=== PATIENT | male | born 1965 | race Caucasian/White ===

== ENCOUNTER 2017-11-10 06:45 | Day surgery (SDC) | payer OTHER ==
[2017-11-08 09:17] VITALS: BMI 36.7
[~2017-11-10 06:45] MED LIST: LACTATED RINGERS 1,000 ML IV SCH
[2017-11-10 07:04] VITALS: TEMP 97.8
[2017-11-10] MEDS ORDERED: LACTATED RINGERS 1,000 ML IV ONE (07:08)
[2017-11-10 07:15] LABS: Glucose,Whole Blood 115 mg/dL (75-99)
[2017-11-10] MEDS ORDERED: GLUCAGON 1 MG/ML VIAL ONE (07:52)
[2017-11-10] MEDS ORDERED: PROPOFOL 10 MG/ML 20 ML VIAL IV ONE (07:52)
--- NOTE | 2017-11-10 08:02 | P.GSHP ---
History of Present Illness H&P Date: 11/10/17 Chief Complaint: GERD, screening colonoscopy This is a 52-year-old male who presents today for EGD and colonoscopy. He has a history of Joseph's esophagus. He is last colonoscopy was 2 years ago. He was found have colon polyps. 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 Last Myocardial Infarction Date:: 2009 History of Any Multi-Drug Resistant Organisms: None Reported Past Surgical History: Orthopedic Surgery Additional Past Surgical History / Comment(s): numerous ortho. surg.; colonoscopy, EGD Past Anesthesia/Blood Transfusion Reactions: No Reported Reaction Smoking Status: Current some day smoker - Past Family History Father Family Medical History: Cancer Additional Family Medical History / Comment(s): colon Medications and Allergies Home Medications Medication Instructions Recorded Confirmed Type HYDROcodone/APAP 10-325MG [[place] 1 tab PO Q6H PRN 10/20/15 11/08/17 History 10-325] Calcium Polycarbophil [Fibercon] 625 mg PO BID 11/08/17 11/08/17 History Hydrochlorothiazide [Hydrodiuril] 50 mg PO DAILY 11/08/17 11/08/17 History Metoprolol Tartrate 25 mg PO BID 11/08/17 11/08/17 History Omeprazole 40 mg PO BID 11/08/17 11/08/17 History Ranitidine HCl [Zantac] 150 mg PO BID 11/08/17 11/08/17 History metFORMIN HCL [Glucophage] 500 mg PO BID 11/08/17 11/08/17 History Allergies Allergy/AdvReac Type Severity Reaction Status Date / Time buspirone AdvReac upset Verified 11/08/17 09:01 stomach citalopram AdvReac upset Verified 11/08/17 09:01 stomach clonazepam [From Klonopin] AdvReac upset Verified 11/08/17 09:01 stomach cyclobenzaprine AdvReac upset Verified 11/08/17 09:01 [From Flexeril] stomach ibuprofen [From Motrin] AdvReac upset Verified 11/08/17 09:01 stomach Surgical - Exam Vital Signs Temp Pulse Resp BP Pulse Ox 97.8 F 62 18 157/87 95 11/10/17 07:02 11/10/17 07:02 11/10/17 07:02 11/10/17 07:02 11/10/17 07:02 - General well developed, well nourished, no distress - Eyes PERRL - ENT normal pinna - Neck no masses - Respiratory normal expansion - Cardiovascular Rhythm: regular - Abdomen Abdomen: soft, non tender Results - Labs Abnormal Lab Results - Last 24 Hours (Table) 11/10/17 Range/Units 07:06 POC Glucose (mg/dL) 115 H (75-99) mg/dL Assessment and Plan Assessment: History of GERD and Joseph's esophagus. History of colon polyps. We'll perform EGD and colonoscopy.
[2017-11-10 08:30] VITALS: RESP 16
[2017-11-10 08:49] VITALS: BP 128/77; PULSE 50
--- NOTE | 2017-12-04 16:14 | P.OP ---
Date of Procedure: 11/10/17 Preoperative Diagnosis: Joseph's esophagus Screening colonoscopy Postoperative Diagnosis: Antral gastritis Mild esophagitis Rectal polyp Procedure(s) Performed: EGD Colonoscopy Anesthesia: MAC Surgeon: Dedrick De La Cruz Pathology: other (Polyp, antrum, esophagus) Condition: stable Disposition: PACU Description of Procedure: The patient's placed on the endoscopy table in the lateral position. He received IV sedation. The gastroscope placed oropharynx and passed in the esophagus and stomach. Scope was then placed through the pylorus. The first and second portion of the duodenum appeared normal. Scope was then brought back the antrum and this appeared mildly inflamed. A biopsies was performed. Scope was then retroflexed and the remainder stomach appeared normal. There was no significant hiatal hernia. The GE junction was at 40 cm. The distal esophagus appeared minimally inflamed a biopsies performed. The proximal esophagus appeared normal. Scope was withdrawn for patient. Next digital rectal exam was performed which revealed no ebonized. The colonoscope was then placed patient anus passed throughout the entire colon. The ileocecal valve was visually is. The cecum, ascending and transverse colon appeared normal. The descending and; appeared normal. The scope was then brought back the rectum and there was a small polyp seen this removed with the snare. The scope was withdrawn from the rectum. Patient tolerated the well and was sent to recovery in stable condition.
== END 2017-11-10 09:21 | disposition home or self-care (01) ==
LOC: ORWHC2ENDO 06:45
PROVIDERS: ATTEND Surgery
DX: Z12.11 Encounter for screening for malignant neoplasm of colon (principal); K29.50 Unspecified chronic gastritis without bleeding; K20.0 Eosinophilic esophagitis; K22.70 Barrett's esophagus without dysplasia; K62.1 Rectal polyp; Z86.010 Personal history of colon polyps; E11.9 Type 2 diabetes mellitus without complications; I10 Essential (primary) hypertension; K76.0 Fatty (change of) liver, not elsewhere classified; Z88.8 Allergy status to other drugs, medicaments and biological substances; M19.90 Unspecified osteoarthritis, unspecified site; Z79.84 Long term (current) use of oral hypoglycemic drugs; Z79.899 Other long term (current) drug therapy; Z88.6 Allergy status to analgesic agent; I25.2 Old myocardial infarction
CPT/HCPCS: 88305; 45385; 43239; J1610; J2704; 45380

== ENCOUNTER → 2019-11-15 | Outpatient (CLI) | payer OTHER ==
--- NOTE | 2019-11-15 13:19 | US ---
EXAMINATION TYPE: US carotid duplex BILAT DATE OF EXAM: 11/15/2019 COMPARISON: NONE CLINICAL HISTORY: dizziness R42. EXAM MEASUREMENTS: RIGHT: Peak Systolic Velocity (PSV) cm/sec ----- Right CCA: 101 ----- Right ICA: 89.7 ----- Right ECA: 91.9 ICA/CCA ratio: 0.89 RIGHT: End Diastole cm/sec ----- Right CCA: 26.5 ----- Right ICA: 21.7 ----- Right ECA: 15.6 LEFT: Peak Systolic Velocity (PSV) cm/sec ----- Left CCA: 103 ----- Left ICA: 95.1 ----- Left ECA: 115 ICA/CCA ratio: 0.92 LEFT: End Diastole cm/sec ----- Left CCA: 23.7 ----- Left ICA: 18.8 ----- Left ECA: 23.4 VERTEBRALS (direction of flow): Right Vertebral: Antegrade Left Vertebral: Antegrade Rhythm: Normal Grayscale, color Doppler, spectral Doppler imaging performed of the carotid arteries. Waveform analys is does not show significant stenosis of the internal carotid arteries. No significant stenosis seen. No elevated velocities. No plaque appreciated. IMPRESSION: No hemodynamic significant stenosis of the proximal internal carotid arteries by Doppler criteria, an indirect measurement of carotid stenosis Criteria for Assigning % of Stenosis / Diameter reduction (Estimation based on the indirect measurements of the internal carotid artery velocities (ICA PSV). 1. Normal (no stenosis)=ICA PSV < 125 cm/s: ratio < 2.0: ICA EDV<40 cm/s. 2. Less than 50% stenosis=ICA PSV < 125 cm/s: ratio < 2.0: ICA EDV<40 cm/s. 3. 50 to 69% stenosis=ICA PSV of 125 to 230 cm/s: ration 2.0 ? 4.0: ICA EDV 40-100 cm/s. 4. Greater than 70% stenosis to near occlusion= ICA PSV > 230 cm/s: ratio > 4.0: ICA EDV > 100 cm/s. 5. Near occlusion= ICA PSV velocities may be low or undetectable: variable ratio and ICA EDV. 6. Total occlusion=unable to detect flow.
--- NOTE | 2019-11-15 13:22 | US ---
EXAMINATION TYPE: US liver DATE OF EXAM: 11/15/2019 COMPARISON: NONE CLINICAL HISTORY: K76.0. Fatty liver. EXAM MEASUREMENTS: Liver Length: 17.8 cm as measured Gallbladder Wall: 0.3 cm CBD: 0.4 cm Right Kidney: 21.4 x 4.3 x 5.1 cm Pancreas: not visualized due to midline bowel gas. Liver: measures 17.8 cm may under represent true size, there is a coarse echotexture. Gallbladder: No stones seen Evidence for sonographic Bowers's sign: No CBD: wnl Right Kidney: cystic area measures 3.4 x 1.9 x 2.6 cm shows imperceptible wall and anechoic appearan ce, increased through transmission consistent with simple cyst IMPRESSION: Exam is somewhat limited. Coarse echotexture within the liver may represent hepatic steat osis, hepatocellular disease, liver may be enlarged
== END | disposition home or self-care (01) ==
LOC: RADUSWWP 12:09
DX: K76.0 Fatty (change of) liver, not elsewhere classified (principal); R42 Dizziness and giddiness
CPT/HCPCS: 76705; 93880

== ENCOUNTER 2020-03-27 18:42 | Emergency (ER) | payer OTHER ==
[2020-03-27 18:53] VITALS: RESP 18; TEMP 99.6
[2020-03-27] MEDS ORDERED: IPRATROPIUM-ALBUTEROL 3 ML NEB INHALATION STA (19:22)
--- NOTE | 2020-03-27 19:25 | ED ---
General Adult HPI - General Chief complaint: Shortness of Breath Stated complaint: JERILYN Time Seen by Provider: 03/27/20 19:00 Source: patient, RN notes reviewed, old records reviewed Mode of arrival: ambulatory Limitations: no limitations - History of Present Illness Initial comments: This a 54-year-old male who presents emergency department stating that he has had about 3 weeks of shortness of breath per patient states it started after he exposed himself to quite a bit of dust in his furnace when he was working on it. Patient states he was treated after that with an inhaler and steroids and it seemed to go away. Patient states about 2 days ago it reoccur a very difficult time breathing he is not coughing he denies any fever denies any cold exposure. Patient denies any chest pain or palpitations. Patient states he feels as if he has to cough something up but he has been unable to get any sputum up. Patient denies any abdominal pain patient denies nausea vomiting diarrhea. Patient denies lightheadedness or dizziness. Patient states exertion does not appear to make it worse in fact walking seems to sometimes make it a little better. Patient denies any swelling to the legs or calf tenderness. - Related Data Home Medications Medication Instructions Recorded Confirmed HYDROcodone/APAP 10-325MG [[place] 1 tab PO Q6H PRN 10/20/15 03/27/20 10-325] hydroCHLOROthiazide [Hydrodiuril] 50 mg PO DAILY 11/08/17 03/27/20 Albuterol Sulfate [Albuterol 1 puff PO RT-TID PRN 03/27/20 03/27/20 Sulfate Hfa] Alogliptin Benzoate [Alogliptin] 25 mg PO DAILY 03/27/20 03/27/20 Cholecalciferol [Vitamin D3 (25 25 mcg PO DAILY 03/27/20 03/27/20 Mcg = 1000 Iu)] Famotidine 20 mg PO DAILY 03/27/20 03/27/20 Loratadine 10 mg PO DAILY PRN 03/27/20 03/27/20 Metoprolol Tartrate [Lopressor] 50 mg PO BID 03/27/20 03/27/20 Naproxen 500 mg PO BID PRN 03/27/20 03/27/20 Pantoprazole Sodium [Protonix] 20 mg PO BID 03/27/20 03/27/20 glipiZIDE [Glucotrol] 5 mg PO BID 03/27/20 03/27/20 metFORMIN HCL 1,000 mg PO BID 03/27/20 03/27/20 Previous Rx's Medication Instructions Recorded Benzonatate [Tessalon Perles] 200 mg PO Q8H #15 capsule 03/27/20 predniSONE [Deltasone] 40 mg PO DAILY #8 tab 03/27/20 Allergies Allergy/AdvReac Type Severity Reaction Status Date / Time buspirone AdvReac upset Verified 03/27/20 20:10 stomach citalopram AdvReac upset Verified 03/27/20 20:10 stomach clonazepam [From Klonopin] AdvReac upset Verified 03/27/20 20:10 stomach cyclobenzaprine AdvReac upset Verified 03/27/20 20:10 [From Flexeril] stomach ibuprofen [From Motrin] AdvReac upset Verified 03/27/20 20:10 stomach quetiapine AdvReac Unknown Verified 03/27/20 20:10 Review of Systems ROS Statement: Those systems with pertinent positive or pertinent negative responses have been documented in the HPI. ROS Other: All systems not noted in ROS Statement are negative. 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 Last Myocardial Infarction Date:: 2009 History of Any Multi-Drug Resistant Organisms: None Reported Past Surgical History: Orthopedic Surgery Additional Past Surgical History / Comment(s): numerous ortho. surg.; colonoscopy, EGD Past Anesthesia/Blood Transfusion Reactions: No Reported Reaction Past Psychological History: No Psychological Hx Reported Smoking Status: Never smoker Past Alcohol Use History: Occasional Past Drug Use History: None Reported - Past Family History Father Family Medical History: Cancer Additional Family Medical History / Comment(s): colon General Exam - General Exam Comments Initial Comments: GENERAL: Patient is well-developed and well-nourished. Patient is nontoxic and well- hydrated and is in mild distress. ENT: Neck is soft and supple. No significant lymphadenopathy is noted. Oropharynx is clear. Moist mucous membranes. Neck has full range of motion without eliciting any pain. EYES: The sclera were anicteric and conjunctiva were pink and moist. Extraocular movements were intact and pupils were equal round and reactive to light. Eyelids were unremarkable. PULMONARY: Unlabored respirations. Good breath sounds bilaterally. Occasional scattered wheeze CARDIOVASCULAR: There is a regular rate and rhythm without any murmurs gallops or rubs. ABDOMEN: Soft and nontender with normal bowel sounds. SKIN: Skin is clear with no lesions or rashes and otherwise unremarkable. NEUROLOGIC: Patient is alert and oriented x3. Cranial nerves II through XII are grossly intact. Motor and sensory are also intact. Normal speech, volume and content. Symmetrical smile. MUSCULOSKELETAL: Normal extremities with adequate strength and full range of motion. LYMPHATICS: No significant lymphadenopathy is noted PSYCHIATRIC: Normal psychiatric evaluation. Limitations: no limitations Course Vital Signs 03/27/20 03/27/20 03/27/20 18:47 19:17 19:22 Temperature 99.6 F Pulse Rate 102 H 98 Respiratory 18 18 18 Rate Blood Pressure 170/95 O2 Sat by Pulse 95 94 L Oximetry 03/27/20 20:00 Temperature Pulse Rate 90 Respiratory 18 Rate Blood Pressure O2 Sat by Pulse 95 Oximetry Medical Decision Making - Medical Decision Making EKG shows normal sinus rhythm at 83 bpm WI interval 270 QRS is 70 QT interval 366 QTC is 4:30. Patient's EKG shows no ST segment elevation or depression. Chest x-ray shows no acute abnormality. Computed tomography scan shows no acute abnormality. Received Solu-Medrol a breathing treatment in the emergency department. Patient was oxygenating 97% on room air. I'll back into reevaluate the patient he continued to be in no respiratory distress oxygenating at 97% on room air but he did continue to have a cough. They can begin to reevaluate the patient he was sleeping in bed oxygenating 96 % on room air. - Lab Data Result diagrams: 03/27/20 19:35 03/27/20 19:35 Lab Results 03/27/20 03/27/20 03/27/20 Range/Units 19:35 19:35 19:35 WBC 6.2 (3.8-10.6) k/uL RBC 4.87 (4.30-5.90) m/uL Hgb 16.2 (13.0-17.5) gm/dL Hct 46.9 (39.0-53.0) % MCV 96.5 (80.0-100.0) fL MCH 33.3 (25.0-35.0) pg MCHC 34.5 (31.0-37.0) g/dL RDW 13.4 (11.5-15.5) % Plt Count 69 L (150-450) k/uL MPV 11.9 Neutrophils % 62 % Lymphocytes % 24 % Monocytes % 8 % Eosinophils % 2 % Basophils % 1 % Neutrophils # 3.8 (1.3-7.7) k/uL Lymphocytes # 1.5 (1.0-4.8) k/uL Monocytes # 0.5 (0-1.0) k/uL Eosinophils # 0.2 (0-0.7) k/uL Basophils # 0.0 (0-0.2) k/uL D-Dimer 0.72 H (<0.60) mg/L FEU Sodium 137 (137-145) mmol/L Potassium 3.5 (3.5-5.1) mmol/L Chloride 99 (98-107) mmol/L Carbon Dioxide 32 H (22-30) mmol/L Anion Gap 6 mmol/L BUN 8 L (9-20) mg/dL Creatinine 0.74 (0.66-1.25) mg/dL Est GFR (CKD-EPI)AfAm >90 (>60 ml/min/1.73 sqM) Est GFR (CKD-EPI)NonAf >90 (>60 ml/min/1.73 sqM) Glucose 142 H (74-99) mg/dL Calcium 9.3 (8.4-10.2) mg/dL Total Bilirubin 0.7 (0.2-1.3) mg/dL AST 100 H (17-59) U/L ALT 99 H (4-49) U/L Alkaline Phosphatase 138 H (38-126) U/L NT-Pro-B Natriuret Pep pg/mL Total Protein 7.3 (6.3-8.2) g/dL Albumin 4.3 (3.5-5.0) g/dL 03/27/20 Range/Units 19:35 WBC (3.8-10.6) k/uL RBC (4.30-5.90) m/uL Hgb (13.0-17.5) gm/dL Hct (39.0-53.0) % MCV (80.0-100.0) fL MCH (25.0-35.0) pg MCHC (31.0-37.0) g/dL RDW (11.5-15.5) % Plt Count (150-450) k/uL MPV Neutrophils % % Lymphocytes % % Monocytes % % Eosinophils % % Basophils % % Neutrophils # (1.3-7.7) k/uL Lymphocytes # (1.0-4.8) k/uL Monocytes # (0-1.0) k/uL Eosinophils # (0-0.7) k/uL Basophils # (0-0.2) k/uL D-Dimer (<0.60) mg/L FEU Sodium (137-145) mmol/L Potassium (3.5-5.1) mmol/L Chloride (98-107) mmol/L Carbon Dioxide (22-30) mmol/L Anion Gap mmol/L BUN (9-20) mg/dL Creatinine (0.66-1.25) mg/dL Est GFR (CKD-EPI)AfAm (>60 ml/min/1.73 sqM) Est GFR (CKD-EPI)NonAf (>60 ml/min/1.73 sqM) Glucose (74-99) mg/dL Calcium (8.4-10.2) mg/dL Total Bilirubin (0.2-1.3) mg/dL AST (17-59) U/L ALT (4-49) U/L Alkaline Phosphatase (38-126) U/L NT-Pro-B Natriuret Pep 53 pg/mL Total Protein (6.3-8.2) g/dL Albumin (3.5-5.0) g/dL Disposition Clinical Impression: Bronchospasm, acute Disposition: HOME SELF-CARE Prescriptions: predniSONE [Deltasone] 40 mg PO DAILY #8 tab Benzonatate [Tessalon Perles] 200 mg PO Q8H #15 capsule Is patient prescribed a controlled substance at d/c from ED?: No Referrals: [facility],Clinic [Primary Care Provider] - 1-2 days Time of Disposition: 21:12
[2020-03-27 19:48] LABS: Basophils % (A) 1 %; Eosinophils # (A) 0.2 k/uL (0-0.7); Eosinophils % (A) 2 %; HCT 46.9 % (39.0-53.0); HGB 16.2 gm/dL (13.0-17.5); Lymphocytes # (A) 1.5 k/uL (1.0-4.8); Lymphocytes % (A) 24 %; MCH 33.3 pg (25.0-35.0); MCHC 34.5 g/dL (31.0-37.0); MCV 96.5 fL (80.0-100.0); Mean Platelet Volume 11.9; Monocytes # (A) 0.5 k/uL (0-1.0); Monocytes % (A) 8 %; Neutrophils # (A) 3.8 k/uL (1.3-7.7); Neutrophils % (A) 62 %; RBC 4.87 m/uL (4.30-5.90); RDW 13.4 % (11.5-15.5); WBC 6.2 k/uL (3.8-10.6)
[2020-03-27 19:53] LABS: ALT 99 U/L (4-49); AST 100 U/L (17-59); African American GFR (CKD) >90 (>60 ml/min/1.73 sqM); Albumin 4.3 g/dL (3.5-5.0); Alkaline Phosphatase 138 U/L (38-126); Anion Gap 6 mmol/L; Blood Urea Nitrogen 8 mg/dL (9-20); Calcium 9.3 mg/dL (8.4-10.2); Carbon Dioxide 32 mmol/L (22-30); Chloride 99 mmol/L (98-107); Glucose 142 mg/dL (74-99); Non-African American GFR(CKD) >90 (>60 ml/min/1.73 sqM); Potassium 3.5 mmol/L (3.5-5.1); Sodium 137 mmol/L (137-145); Total Bilirubin 0.7 mg/dL (0.2-1.3); Total Protein 7.3 g/dL (6.3-8.2)
--- NOTE | 2020-03-27 19:56 | XR ---
EXAMINATION TYPE: XR chest 2V DATE OF EXAM: 03/27/2020 COMPARISON: 08/08/2012 HISTORY: Difficulty breathing TECHNIQUE: FINDINGS: Heart and mediastinum are normal. Lungs are clear. Diaphragm is normal. Bony thorax appears normal IMPRESSION: Normal chest. Change
[2020-03-27 20:08] VITALS: PULSE 90
[2020-03-27] MEDS ORDERED: ALBUTEROL HFA INHALER INHALATION ONE (20:15)
[2020-03-27 20:31] LABS: Platelet Count 69 k/uL (150-450)
[2020-03-27] MEDS ORDERED: methylPREDNISolone SOD SUCCI 125 MG/2 ML VIAL IV STA (21:04)
--- NOTE | 2020-03-27 21:17 | CT ---
EXAMINATION TYPE: CT chest angio for PE DATE OF EXAM: 03/27/2020 COMPARISON: None HISTORY: Elevated d-dimer and cough. CT DLP: 762.4 mGycm Automated exposure control for dose reduction was used. CONTRAST: Performed with IV Contrast, patient injected with 87ml mL of Isovue 370. There are 3-D post processed images. The lungs are clear of consolidation. There is no evidence of a pulmonary mass. There is no pleural e ffusion. There is no pericardial effusion. Heart size is fairly normal. There is no mediastinal adeno nic. There are no hilar masses. Thoracic aorta is intact. There is no aneurysm or dissection. The thoracic spine is intact. The sternum is intact. I see no evidence of a fracture. The upper abdom inal soft tissues appear intact. Bile ducts are not dilated. There are small calcified granulomata in the spleen. There is normal contrast opacification of the pulmonary arteries. There are no filling defects. Thora cic aorta is intact. There is no aneurysm or dissection. IMPRESSION: Negative exam. No evidence of pulmonary embolism.
[2020-03-27 21:32] VITALS: BP 163/94
== END 2020-03-27 21:42 | disposition home or self-care (01) ==
LOC: EC 18:42
DX: J98.01 Acute bronchospasm (principal); E11.9 Type 2 diabetes mellitus without complications; K21.9 Gastro-esophageal reflux disease without esophagitis; I10 Essential (primary) hypertension; I25.2 Old myocardial infarction; Z79.84 Long term (current) use of oral hypoglycemic drugs; Z79.899 Other long term (current) drug therapy; Z88.6 Allergy status to analgesic agent; Z88.8 Allergy status to other drugs, medicaments and biological substances
CPT/HCPCS: 36415; 94640; 85379; 83880; 80053; 85025; 71046; 71275; 99285; 96374; J2930; Q9967

== ENCOUNTER 2020-06-26 08:26 | Day surgery (SDC) | payer OTHER ==
[2020-06-25 08:26] VITALS: BMI 44.6
[2020-06-26 08:52] VITALS: RESP 16; TEMP 97.4
[2020-06-26] MEDS: LACTATED RINGERS 1,000 ML IV SCH ×2 (08:53→09:21)
[2020-06-26] MEDS ORDERED: LIDOCAINE 1% (10MG/ML) FOR IV START INTRADERMA ONE (08:53)
[2020-06-26 08:55] LABS: Glucose,Whole Blood 165 mg/dL (75-99)
[2020-06-26] MEDS ORDERED: LIDOCAINE 1% INJ 10MG/ML (20 ML MDV) ONE (09:22)
[2020-06-26] MEDS ORDERED: PROPOFOL 10 MG/ML 20 ML VIAL IV ONE (09:22)
--- NOTE | 2020-06-26 09:46 | P.PCN ---
Date of Procedure: 06/26/20 Procedure(s) Performed: Brief history: Patient is a pleasant 54-year-old white male scheduled for an elective upper endoscopy as well as colonoscopy as a part of evaluation of GERD/long-standing history of GERD and prior history of colon polyps Procedure performed: Esophagogastroduodenoscopy biopsy Colonoscopy with snare polypectomy Preoperative diagnosis: GERD/Joseph's esophagus History of colon polyps Anesthesia: MAC Procedure: After informed consent was obtained from the patient was brought into the endoscopy unit and IV sedation was administered by anesthesia under continuous monitoring. Initially upper endoscopy was done. The Olympus GF 160 video endoscope was inserted inserted into the mouth and esophagus intubated without any difficulty and was gradually advanced into the stomach and duodenum and carefully examined. The bulb and second part of the duodenum appeared normal. The scope was then withdrawn into the stomach adequately insufflated with air and upon careful examination the antrum had mild gastritis and biopsies were done from this area. The body, cardia and fundus appeared normal. The scope was then withdrawn into the esophagus. The GE junction was located at 40 cm to the incisors. There was long segment of Joseph's esophagus extending from 30- 40 cm from the incisors and biopsies were done from this area. Small hiatal hernia noted. Rest of the esophagus appeared normal. Patient tolerated the procedure well. At this time the patient continued to remain sedation. Initial digital rectal examination was normal. Olympus CF 160 video colonoscope was then inserted into the rectum and gradually advanced to the cecum without any difficulty. Careful examination was performed as the scope was gradually being withdrawn. The prep was excellent. The cecum, ascending colon, transverse colon, descending colon, appeared normal. In the sigmoid colon there was a 1 polyp removed by snare polypectomy. Rest of the sigmoid colon and rectum appeared normal. Retroflexion was performed in the rectum and grade 2 internal hemorrhoids were noted. Patient tolerated the procedure well. Impression: 1. Upper endoscopy revealed long segment Joseph's esophagus of a small hiatal hernia and mild antral gastritis 2. Colonoscopy revealed 1 cm sigmoid colon polyp status post polypectomy and small internal hemorrhoids Recommendations: Findings of this examination were discussed with the patient as well as his family. He was advised to follow with the biopsy results. He will continue with Protonix 40 mg twice daily and follow antireflux measures. If the biopsy does not show any evidence of dysplasia he can have a repeat upper endoscopy and colonoscopy in 3 years
[2020-06-26 10:08] VITALS: BP 149/85; PULSE 78
== END 2020-06-26 11:00 | disposition home or self-care (01) ==
LOC: ORWHC2ENDO 08:26
PROVIDERS: ATTEND Internal Medicine Gastroenterology
DX: Z12.11 Encounter for screening for malignant neoplasm of colon (principal); K63.5 Polyp of colon; K29.50 Unspecified chronic gastritis without bleeding; K22.70 Barrett's esophagus without dysplasia; K44.9 Diaphragmatic hernia without obstruction or gangrene; Z86.010 Personal history of colon polyps; J45.909 Unspecified asthma, uncomplicated; E11.9 Type 2 diabetes mellitus without complications; M19.90 Unspecified osteoarthritis, unspecified site; K21.9 Gastro-esophageal reflux disease without esophagitis; K74.60 Unspecified cirrhosis of liver; Z79.1 Long term (current) use of non-steroidal anti-inflammatories (NSAID); Z79.84 Long term (current) use of oral hypoglycemic drugs; Z79.891 Long term (current) use of opiate analgesic; Z79.899 Other long term (current) drug therapy; Z88.6 Allergy status to analgesic agent; Z88.8 Allergy status to other drugs, medicaments and biological substances; K64.1 Second degree hemorrhoids
CPT/HCPCS: 88305; 45385; 43239; J2001; J2704

== ENCOUNTER → 2023-03-02 | Outpatient (CLI) | payer OTHER | END | disposition home or self-care (01) | LOC: LABPAT 15:44 | PROVIDERS: ATTEND Orthopaedic Surgery | DX: M17.11 Unilateral primary osteoarthritis, right knee (principal); Z22.322 Carrier or suspected carrier of Methicillin resistant Staphylococcus aureus; Z01.812 Encounter for preprocedural laboratory examination | CPT/HCPCS: 87070 ==

== ENCOUNTER → 2023-04-08 | Outpatient (CLI) | payer OTHER | END | disposition home or self-care (01) | LOC: LABPAT 10:23 | DX: Z01.812 Encounter for preprocedural laboratory examination (principal); D69.6 Thrombocytopenia, unspecified | CPT/HCPCS: 86850; 86900; 86901 ==

== ENCOUNTER 2023-04-11 10:00 | Day surgery (SDC) | payer OTHER ==
--- NOTE | 2023-04-10 08:48 | P.HPOR ---
History of Present Illness H&P Date: 04/10/23 Chief Complaint: Right knee pain The patient is a 57-year-old male who presents with progressive right knee pain for the past several years worsening recently. He notes diffuse pain along with swelling. Intermittently he has giving way. He tried injections along with medications without much relief. He notes daily pain that significantly limits him. Review of Systems As per HPI Past Medical History Past Medical History: Chest Pain / Angina, Diabetes Mellitus, GERD/Reflux, Hypertension, Liver Disease, Musculoskeletal Disorder, Osteoarthritis (OA), Skin Disorder Additional Past Medical History / Comment(s): HAS BEEN HAVING SOB AND FATIGUE, being worked up for thrombocytopnia. bleeding with stools-hx hemorrhoids,shingles 2010; fatty liver disease,Joseph's Esophagus,chronic scab to back of head from prior injury 20 yrs ago.resolved now Last Myocardial Infarction Date:: 2009 History of Any Multi-Drug Resistant Organisms: None Reported Past Surgical History: Orthopedic Surgery Additional Past Surgical History / Comment(s): colonoscopy, EGD. BILAT SHOULDER SX. VASECTOMY Past Anesthesia/Blood Transfusion Reactions: No Reported Reaction Smoking Status: Former smoker - Past Family History Father Family Medical History: Cancer Additional Family Medical History / Comment(s): colon Medications and Allergies Home Medications Medication Instructions Recorded Confirmed Type hydroCHLOROthiazide [Hydrodiuril] 50 mg PO DAILY 11/08/17 04/06/23 History Albuterol Sulfate [Albuterol 1 puff PO RT-TID PRN 03/27/20 04/06/23 History Sulfate Hfa] Loratadine 10 mg PO DAILY PRN 03/27/20 04/06/23 History Metoprolol Tartrate [Lopressor] 50 mg PO BID 03/27/20 04/06/23 History Naproxen 500 mg PO BID PRN 03/27/20 04/06/23 History glipiZIDE [Glucotrol] 20 mg PO 1700 03/27/20 04/06/23 History metFORMIN HCL [Glucophage] 1,000 mg PO 0 03/27/20 04/06/23 History Pantoprazole Sodium 40 mg PO BID 06/25/20 04/06/23 History Alogliptin Benzoate [Alogliptin] 25 mg PO DAILY 04/06/23 04/06/23 History Empagliflozin [Jardiance] 10 mg PO DAILY 04/06/23 04/06/23 History Gabapentin [Neurontin] 200 mg PO TID 04/06/23 04/06/23 History HYDROcodone/APAP 7.5-325MG [[place] 1 tab PO Q6H 04/06/23 04/06/23 History 7.5-325] calcitrioL 0.25 mcg PO DAILY 04/06/23 04/06/23 History lisinopriL [Zestril] 5 mg PO 2100 04/06/23 04/06/23 History Allergies Allergy/AdvReac Type Severity Reaction Status Date / Time buspirone AdvReac upset Verified 04/06/23 09:11 stomach citalopram AdvReac upset Verified 04/06/23 09:11 stomach clonazepam [From Klonopin] AdvReac upset Verified 04/06/23 09:11 stomach cyclobenzaprine AdvReac upset Verified 04/06/23 09:11 [From Flexeril] stomach ibuprofen [From Motrin] AdvReac upset Verified 04/06/23 09:11 stomach quetiapine AdvReac Unknown Verified 04/06/23 09:11 Physical Examination - Knee right Appearance: effusion Effusion grade: grade 2 Varus alignment in stance: 5 degrees Tenderness with palpation: anterior, medial Pain: throughout ROM Gait: limping ROM: extension: -15 degrees ROM: flexion: 80 degrees Crepitus with motion: Yes Strength: extension: 5/5 Strength: flexion: 5/5 Meniscal tests: medial meniscal tests: positive, medial joint line pain: positive Results The patient is a well-developed well-nourished male approximately 5 foot 4, 236 pounds of endomorphic habitus. HEENT exam is nonfocal, neck is supple. He has painless passive motion of the right hip. Straight leg raise is negative. He's tender up about the medial joint line of the right knee. Collaterals are stable, Rekha was negative, Jarrett's elicits medial pain. His distal neurovascular appears intact in the right lower extremity. - Diagnostic results Knee x-ray: image reviewed (Weightbearing AP lateral and merchant views of the right knee obtained in the office show severe medial compartment osteoarthrosis with [id number] changes and subchondral sclerosis.) Assessment and Plan Assessment: Right knee severe medial and patellofemoral compartment osteoarthrosis Thrombocytopenia Increased body mass index Plan: I talked to the patient in length regarding his condition and treatment options. At this point is having persistent pain and mechanical symptoms despite conservative measures. After a thorough discussion he opts to proceed with surgery. We'll proceed with right total knee arthroplasty. Risks and benefits were discussed at length in layman's terms. We will plan on preoperative platelet transfusion. We'll institute DVT prophylaxis postoperatively.
[~2023-04-11 10:00] MED LIST changes: -LACTATED RINGERS 1,000 ML IV SCH; +LIDOCAINE 1% (10MG/ML) FOR IV START INTRADERMA PRN; +TRANEXAMIC 1,000 MG/100ML-NACL 1,000 MG in SALINE 1 100ML.BAG IVPB PRN
[2023-04-11] MEDS: LACTATED RINGERS 1,000 ML IV SCH (10:40)
[2023-04-11 11:31] LABS: Glucose,Whole Blood 201 mg/dL (70-110)
[2023-04-11] MEDS: DEXAMETHASONE SOD PHOSPHATE 4 MG/ML 1 ML VIAL IV ONE (11:46)
[2023-04-11] MEDS: MELOXICAM 7.5 MG TAB PO PRN (11:46)
[2023-04-11] MEDS: ONDANSETRON 4 MG/2 ML VIAL IVP ONE (11:46)
[2023-04-11] MEDS: ACETAMINOPHEN TAB 500 MG TAB PO PRN (11:46)
[2023-04-11] MEDS: fentaNYL (PF) 50 MCG/ML 2 ML AMP IVP ONE (12:29)
[2023-04-11] MEDS: MIDAZOLAM 2 MG/2 ML VIAL IVP ONE (12:29)
[2023-04-11] MEDS: INSULIN ASPART (NovoLOG) 100 UNIT/ML VIAL SQ ONE ×2 (13:03→17:41)
[2023-04-11 13:30] LABS: Glucose,Whole Blood 183 mg/dL (70-110)
--- NOTE | 2023-04-11 13:32 | P.ANPRN ---
Procedure Note - Anesthesia - Nerve Block Performed Right Adductor Canal Infusion Time Out Performed: Yes (1228) Date of Procedure: 04/11/23 Procedure Start Time: 12:29 Procedure Stop Time: 12:34 Location of Patient: PreOp Indication: Acute Post-Operative Pain, Requested by Surgeon Specifically requested for management of pain by : Riccardo Marie Sedation Type: Sedate with meaningful contact maintained Preparation: Sterile Prep, Sterile Dressing Position: Supine Catheter: None Needle Types: Pajunk Needle Gauge: 18 Ultrasound used to visualize needle placement: Yes Ultrasound used to observe medication spread: Yes Injectate: 0.5% Ropivacaine (see comment for volume) (15cc +10CC nacl pf) Blood Aspirated: No Pain Paresthesia on Injection Noted: No Resistance on Injection: Normal Image Stored and Saved: Yes Events: Uneventful and Well Tolerated
--- NOTE | 2023-04-11 13:33 | P.ANPRN ---
Procedure Note - Anesthesia - Nerve Block Performed Right iPack Single Time Out Performed: Yes (1228) Date of Procedure: 04/11/23 Procedure Start Time: 12:35 Procedure Stop Time: 12:40 Location of Patient: PreOp Indication: Acute Post-Operative Pain, Requested by Surgeon Specifically requested for management of pain by DrValarie: Riccardo Marie Sedation Type: Sedate with meaningful contact maintained Preparation: Sterile Prep Position: Supine Catheter: None Needle Types: Pajunk Needle Gauge: 21 Ultrasound used to visualize needle placement: Yes Ultrasound used to observe medication spread: Yes Injectate: 0.5% Ropivacaine (see comment for volume) (15cc +10cc nacl pf) Blood Aspirated: No Pain Paresthesia on Injection Noted: No Resistance on Injection: Normal Image Stored and Saved: Yes Events: Uneventful and Well Tolerated
[2023-04-11] MEDS ORDERED: SODIUM CHLORIDE 0.9% (PF) 10 ML VIAL ONE (14:12)
[2023-04-11] MEDS ORDERED: fentaNYL (PF) 50 MCG/ML 2 ML AMP ONE (14:12)
[2023-04-11] MEDS ORDERED: TRANEXAMIC 1,000 MG/100ML-NACL PREMIX BAG ONE (14:12)
[2023-04-11] MEDS ORDERED: GLYCOPYRROLATE 0.2 MG/ML 2 ML VIAL ONE (14:12)
[2023-04-11] MEDS ORDERED: LIDOCAINE 1% INJ 10MG/ML (20 ML MDV) ONE (14:12)
[2023-04-11] MEDS ORDERED: HYDROmorphone (PF) 1 MG/ML ONE (14:12)
[2023-04-11] MEDS ORDERED: ROCURONIUM 10 MG/ML (5 ML VIAL) IV ONE (14:12)
[2023-04-11] MEDS ORDERED: MIDAZOLAM 2 MG/2 ML VIAL ONE (14:12)
[2023-04-11] MEDS ORDERED: METOPROLOL TARTRATE 5 MG/5 ML VIAL IVP ONE (14:12)
[2023-04-11] MEDS ORDERED: SUCCINYLCHOLINE CHLORIDE 200 MG/10 ML VIAL IV ONE (14:12)
[2023-04-11] MEDS ORDERED: PROPOFOL 10 MG/ML 20 ML VIAL IV ONE (14:12)
[2023-04-11] MEDS ORDERED: ROPIVACAINE 5 MG/ML 30 ML VIAL ONE (14:12)
[2023-04-11] MEDS ORDERED: NEOSTIGMINE 1 MG/ML 10 ML VIAL ONE (14:12)
[2023-04-11] MEDS: ceFAZolin 1,000 MG in SODIUM CHLORIDE 0.9% 1,000 ML IRRIGATION ONE (14:51)
[2023-04-11] MEDS ORDERED: HYDROmorphone 0.5 MG/0.5 ML SYRINGE IVP PRN (16:16)
[2023-04-11] MEDS ORDERED: MAGNESIUM HYDROXIDE 2,400 MG/30 ML CUP PO PRN (16:16)
[2023-04-11] MEDS ORDERED: NALOXONE 0.4 MG/ML 1 ML VIAL IV PRN (16:16)
[2023-04-11] MEDS ORDERED: HYDROcodone/APAP 7.5-325MG 1 EACH TAB PO PRN (16:16)
--- NOTE | 2023-04-11 16:43 | P.OP ---
Date of Procedure: 04/11/23 Preoperative Diagnosis: Right knee severe tricompartmental osteoarthrosis Postoperative Diagnosis: Same Procedure(s) Performed: Right total knee arthroplastycementedposterior stabilized Implants: Depuy Attune size 6 cemented femoral component, size 5 cemented tibial component with a 14 x 50 mm stem extension, 9 mm articular surface, 35 mm cemented patellar component. Anesthesia: [facility] Surgeon: Riccardo Marie Stage Driver #1: Wilian Mckeon Estimated Blood Loss (ml): 50 Pathology: none sent Condition: stable Disposition: PACU Indications for Procedure: The patient's a 57-year-old male who presents with progressive right knee pain secondary to osteoarthrosis despite conservative measures. A discussion of the risks and benefits of operative intervention versus continued conservative measures was made with patient. He opted proceed with surgery. Operative risks to include infection, neurovascular injury, development of blood clots, possible component loosening/failure and need for subsequent procedures was discussed. Informed consent was obtained. Operative Findings: As below Description of Procedure: The patient was brought to the operating room, and after induction of spinal anesthesia the right lower extremity was prepped and draped in a normal fashion. The tourniquet was inflated to 270 mm marker. A longitudinal incision extending 3 finger breaths above the superior pole of patella extending to the medial aspect the tibial tubercle was then made. The skin and subcutaneous tissues were divided sharply. Electrocautery was used for hemostasis. A medial parapatellar arthrotomy was performed. The medial soft tissues to include the superficial and deep portions of the medial collateral ligament were elevated subperiosteally. The patella was everted. A portion of the retropatellar fat pad was excised sharply. The anterior cruciate ligament was sacrificed. Blunt retractors were placed. A starting hole was made in the distal femur 1 cm anterior to the posterior cruciate ligament origin. An intramedullary femoral guide was then inserted planning on 5 valgus distal cut with 9 mm distal resection. The cutting block was pinned in place. The distal cut was then made. The posterior referencing sizing guide was utilized. I felt size 6 was most appropriate. 3 of external rotation was built into the system and verified off the trans-epicondylar axis and the posterior condyles. The cutting block was pinned in place. The anterior, posterior, and chamfer cuts then made. Bone fragments were removed. The intercondylar guide was placed and the notch cut was made with a sagittal saw. The bone block was removed in one fragment. The trial component was then placed. There is good anterior to posterior and medial to lateral fit. The distal peg holes were drilled. The trial component was removed. Attention was then paid towards preparing the proximal tibia. An extra medullary guide was utilized in line with the tibial shaft and second metatarsal distally. I planned on 2 mm resection from the medial compartment. The cutting block was pinned in place. The proximal tibial cut was then made. The bone was removed in one fragment. The remnants of the medial and lateral menisci were excised at the capsular junction with electrocautery. The tibia sized most appropriately at size 5. The trial femoral and tibial components were placed along with a 9 mm articular surface. I was able to obtain full flexion and extension with internal and external rotation. After several flexion and extension cycles, the tibial rotation was marked with electrocautery line with the medial one third of the tibial tubercle. Attention was then paid towards preparing the patella. A patella reamer was utilized taking stem to 14 mm of bone stock. A good flush cut was made. The patella sized most appropriately 35 mm. The peg holes were drilled. The trial components placed. I had good patellofemoral tracking with no hands technique. The trial components were then removed. The tibia was prepared in the appropriate rotation with appropriate drill and keel punch planning on a routine by 50 mm stem extension. The posterior osteophytes were removed with a curved osteotome. The flexion and extension gaps were checked and felt to be symmetric at 9 mm. A trial components were then removed. The bony surfaces were prepared with pulsatile lavage and dried. The tibial component was then cemented place was fully seated. Excess cement was removed. The femoral component cemented place and was fully seated. Excess cement was removed. The trial 9 mm articular surface was placed and the knee was put in full extension. The patella component was cemented place. After the cement had sufficiently harden ed, the knee was again taken through a range of motion. Again I was able to obtain full flexion and extension with varus and valgus stress. The trial 9 mm articular surface was removed and the final one inserted. This was fully seated. Care was taken to avoid any soft tissue interposition. Pulsatile lavage was again utilized. The medial parapatellar arthrotomy was closed with #2 Ethibond suture. The tourniquet was deflated with approximately 75 minutes total tourniquet time. Final hemostasis was obtained with the cautery. There was minimal bleeding therefore a deep drain was not placed. The subcutaneous tissues were reapproximated with interrupted 2-0 Vicryl sutures. The skin was reapproximated with 3-0 subcuticular strata fix suture. Skin tape and adhesive was applied. A sterile dressing was applied. The patient was awoken from sedation and transferred to recovery room in good condition. Blood loss was estimated at 50 mL. No complications were incurred. Sponge and needle counts were correct at the end of the case. Wilian RIEVRA assisted during the major components of this case to include exposure, bone resection, implantation, and closure.
[2023-04-11] MEDS: ROPIVACAINE 0.75% 1,100 MG, SODIUM CHLORIDE 0.9% 500 ML 403 ML, EMPTY PAIN BALL 1 EACH MISCELLANE PRN (17:08)
[2023-04-11] MEDS: HYDROmorphone 0.5 MG/0.5 ML SYRINGE IVP PRN (17:15)
--- NOTE | 2023-04-11 17:22 | XR ---
EXAMINATION TYPE: XR knee limited RT DATE OF EXAM: 04/11/2023 CLINICAL HISTORY: Postoperative evaluation Two views of the right knee are submitted. Identified are changes of total knee arthroplasty with femoral and tibial components appearing well seated. Postsurgical soft tissue changes are noted. Alignment is anatomic.
[2023-04-11 17:25] LABS: Glucose,Whole Blood 245 mg/dL (70-110)
[2023-04-11] MEDS: HYDROcodone/APAP 10-325MG 1 EACH TAB PO PRN (18:36)
[2023-04-11] MEDS: droPERidol 5 MG/2 ML VIAL IVP ONE (19:00)
[2023-04-11 20:53] LABS: Glucose,Whole Blood 265 mg/dL (70-110)
[2023-04-11] MEDS: hydrOXYzine pamoate 25 MG CAP PO PRN (21:20)
[2023-04-11] MEDS: GABAPENTIN 100 MG CAP PO SCH (21:20)
[2023-04-11] MEDS: SENNOSIDES-DOCUSATE SODIUM 1 EACH TAB PO SCH (21:20)
[2023-04-11] MEDS: HYDROmorphone 1 MG/ML 1 ML SYRINGE IVP PRN (21:21)
[2023-04-12] MEDS ORDERED: DEXTROSE 50% SYRINGE 50 ML IVP PRN ×2 (03:32)
--- NOTE | 2023-04-12 03:36 | P.CONS ---
History of Present Illness - Reason for Consult Consult date: 04/11/23 medical evalution - Chief Complaint right knee OA - History of Present Illness 57-year-old male with diabetes mellitus, hypertension Patient coming in for scheduled right total knee arthroplasty tolerated procedure well no observed immediate postoperative complications Patient has ambulated with assistance earlier tolerated p.o. intake denies any chest pain trouble breathing fevers chills nausea vomiting. Patient denies tobacco smoking illicit drugs or heavy alcohol review of systems Pertinent positives as noted in HPI. All other systems were reviewed and are negative on exam Constitutional: No acute distress, conversant, pleasant Eyes: Anicteric sclerae, moist conjunctiva, Pupils equal round reactive to light ENMT: NC/AT Oropharynx clear, no erythema, or exudates Neck: Supple, no masses, or JVD No carotid bruits No thyromegaly Lungs: Clear to auscultation Clear to percussion Normal respiratory effort, no accessory muscle use Cardiovascular: Heart regular in rate and rhythm, No murmurs, gallops, or rubs No peripheral edema Abdominal: Soft Nontender, no guarding, rebound or rigidity Abdomen moving with respiration Normoactive bowel sounds Extremities: No digital cyanosis No clubbing Pedal pulses intact and symmetrical Radial pulses intact and symmetrical No calf tenderness Psychiatric: Alert and oriented to person, place and time Appropriate affect fair judgement Neuro Muscles Strength 5/5 in all 4 extremities some limited exam of the right lower extremity due to postop Sensation to light touch grossly present throughout Cranial nerves II-XII grossly intact Past Medical History Past Medical History: Chest Pain / Angina, Diabetes Mellitus, GERD/Reflux, Hypertension, Liver Disease, Musculoskeletal Disorder, Osteoarthritis (OA), Skin Disorder Additional Past Medical History / Comment(s): HAS BEEN HAVING SOB AND FATIGUE, being worked up for thrombocytopnia. bleeding with stools-hx hemorrhoids,shingles 2010; fatty liver disease,Joseph's Esophagus,chronic scab to back of head from prior injury 20 yrs ago.resolved now Last Myocardial Infarction Date:: 2009 History of Any Multi-Drug Resistant Organisms: None Reported Past Surgical History: Orthopedic Surgery Additional Past Surgical History / Comment(s): colonoscopy, EGD. BILAT SHOULDER SX. VASECTOMY Past Anesthesia/Blood Transfusion Reactions: No Reported Reaction Past Psychological History: No Psychological Hx Reported Additional Psychological History / Comment(s): gets anxious prior to surgeries Smoking Status: Former smoker Past Alcohol Use History: Occasional Additional Past Alcohol Use History / Comment(s): smokes 1 pack of cigs per week-QUIT 2019 Past Drug Use History: None Reported - Past Family History Father Family Medical History: Cancer Additional Family Medical History / Comment(s): colon Medications and Allergies Home Medications Medication Instructions Recorded Confirmed Type hydroCHLOROthiazide [Hydrodiuril] 50 mg PO DAILY 11/08/17 04/11/23 History Albuterol Sulfate [Albuterol 1 puff PO RT-TID PRN 03/27/20 04/11/23 History Sulfate Hfa] Loratadine 10 mg PO DAILY PRN 03/27/20 04/11/23 History Metoprolol Tartrate [Lopressor] 50 mg PO BID 03/27/20 04/11/23 History Naproxen 500 mg PO BID PRN 03/27/20 04/11/23 History glipiZIDE [Glucotrol] 20 mg PO 1700 03/27/20 04/11/23 History metFORMIN HCL [Glucophage] 1,000 mg PO 1700 03/27/20 04/11/23 History Pantoprazole Sodium 40 mg PO BID 06/25/20 04/11/23 History Alogliptin Benzoate [Alogliptin] 25 mg PO DAILY 04/06/23 04/11/23 History Empagliflozin [Jardiance] 10 mg PO DAILY 04/06/23 04/11/23 History Gabapentin [Neurontin] 200 mg PO TID 04/06/23 04/11/23 History HYDROcodone/APAP 7.5-325MG [[place] 1 tab PO Q6H 04/06/23 04/11/23 History 7.5-325] calcitrioL 0.25 mcg PO DAILY 04/06/23 04/11/23 History lisinopriL [Zestril] 5 mg PO 2100 04/06/23 04/11/23 History Allergies Allergy/AdvReac Type Severity Reaction Status Date / Time buspirone AdvReac upset Verified 04/11/23 10:44 stomach citalopram AdvReac upset Verified 04/11/23 10:44 stomach clonazepam [From Klonopin] AdvReac upset Verified 04/11/23 10:44 stomach cyclobenzaprine AdvReac upset Verified 04/11/23 10:44 [From Flexeril] stomach ibuprofen [From Motrin] AdvReac upset Verified 04/11/23 10:44 stomach quetiapine AdvReac Unknown Verified 04/11/23 10:44 Physical Exam Vitals: Vital Signs Temp Pulse Resp BP Pulse Ox 04/12/23 02:00 99.0 F 114 H 169/90 98 04/11/23 20:05 99.5 F 129 H 16 170/95 93 L 04/11/23 17:47 95 20 166/86 94 L 04/11/23 17:31 86 20 169/84 94 L 04/11/23 17:19 82 18 179/85 93 L 04/11/23 17:06 87 18 166/81 99 04/11/23 16:51 97.1 F L 103 H 16 168/76 99 04/11/23 13:00 70 18 174/93 98 04/11/23 11:30 97.8 F 77 18 187/90 98 Intake and Output 04/11/23 04/11/23 04/12/23 14:59 22:59 06:59 Intake Total 751 595 Output Total 650 Balance 751 -55 Intake: IV 751 300 Blood Product 0 295 Platelet Pheresis Pas 0 295 Psoralen Unit [id number] Output: Urine 600 Estimated Blood Loss 50 Other: Weight 110 kg 110 kg Results Labs: Abnormal Lab Results - Last 24 Hours (Table) 04/11/23 04/11/23 04/11/23 Range/Units 11:22 13:29 17:23 POC Glucose (mg/dL) 201 H 183 H 245 H (70-110) mg/dL 04/11/23 Range/Units 20:51 POC Glucose (mg/dL) 265 H (70-110) mg/dL Assessment and Plan Assessment: Right total knee arthroplasty postoperative day 0 Tolerated procedure well Pain management DVT prophylaxis per primary orthopedic team Diabetes mellitus Insulin sliding scale Check A1c Blood sugar uncontrolled at this time Hypertension, uncontrolled Optimize pain control Resume lisinopril, metoprolol, hydrochlorothiazide Check BMP CBC in the morning Thank you for this consultation
[2023-04-12 06:07] LABS: Glucose,Whole Blood 198 mg/dL (70-110)
[2023-04-12] MEDS: PANTOPRAZOLE 40 MG TABLET PO SCH (06:20)
[2023-04-12] MEDS: INSULIN ASPART (NovoLOG) 100 UNIT/ML VIAL SQ SCH (06:21)
--- NOTE | 2023-04-12 06:49 | P.PN ---
Progress Note - Text Progress Note Date: 04/12/23 Postoperative day # 1 status post total knee arthroplasty, under spinal anesthesia, and adductor canal catheter placed for postoperative analgesia. Currently on ropivacaine 0.2% 8 mL per hour with continuous infusion. There is no erythema, and there is no tenderness at site of catheter insertion. Patient's pain that he is having is what he reported to have preoperatively and not from the surgical site. Overall he is doing very well VAS: 4/10 Breakthrough Meds: When necessary Percocet Complications: None . Plan: Plan is to continue: Plans to continue the current settings. Patient will go home as planned.
[2023-04-12] MEDS: METOPROLOL TARTRATE 50 MG TAB PO SCH (07:44)
[2023-04-12] MEDS: RIVAROXABAN 10 MG TAB PO SCH (07:45)
[2023-04-12] MEDS ORDERED: LORATADINE 10 MG TAB PO PRN (07:58)
[2023-04-12 08:06] VITALS: PULSE 101; RESP 19; TEMP 98.3
[2023-04-12 09:04] LABS: African American GFR (CKD) >90 (>60 ml/min/1.73 sqM); Anion Gap 8 mmol/L; Blood Urea Nitrogen 18 mg/dL (9-20); Calcium 8.6 mg/dL (8.4-10.2); Carbon Dioxide 24 mmol/L (22-30); Chloride 105 mmol/L (98-107); Glucose 185 mg/dL (74-99); Non-African American GFR(CKD) >90 (>60 ml/min/1.73 sqM); Potassium 3.8 mmol/L (3.5-5.1); Sodium 137 mmol/L (137-145)
[2023-04-12 09:43] VITALS: BP 166/97
[2023-04-12 11:19] LABS: Glucose,Whole Blood 206 mg/dL (70-110)
--- NOTE | 2023-04-12 11:23 | P.DS ---
Providers Date of admission: 04/11/2023 Expected date of discharge: 04/12/23 Attending physician: Riccardo Marie Consults: 04/11/23 16:16 Consult Physician Routine Consulting Provider: Marin Be Consult Reason/Comments: medical management s/p right total knee arthroplasty Do you want consulting provider notified?: Yes Primary care physician: [facility] Hospital Course: Date of admission: 04/11/2023 Date of discharge: 04/12/2023 Admission diagnosis: Right knee osteoarthritis Discharge diagnosis: Same Attending physician: Dr. Marie Surgical procedures: Right total knee arthroplasty Brief history: Patient is a 57-year-old male with a history of with progressive primary right knee osteoarthritis. At this point patient has failed conservative treatment measures and has opted to proceed with a elective right total knee arthroplasty. Hospital course: Details of patient's surgery can be found in operative report. Patient tolerated the procedure well and was subsequently transported to orthopedic floor. Patient's orthopeidc and medical care was provided daily. Patient had daily laboratory tests performed for evaluation of overall blood counts. Patient had daily physical therapy to include strengthening range of motion as well as education with walker ambulation. Patient was treated with Xarelto for their postoperative DVT prophylaxis during their inpatient stay. Patient was noted to have a relatively uneventful postoperative course. Patient reported satisfactory pain control with oral pain medications by postoperative day 1. Patient showed satisfactory progress with physical therapy. Patient moved steadily through the program and had no difficulty meeting the goals by postoperative day 1. Given patient's otherwise satisfactory course and having met physical therapy goals, plan is to discharge patient home with health services on postoperative day 1. Discharge condition/disposition: Patient will be discharged home with health services in stable condition. Discharge medications: Instructions are given on resumption of patient's normal daily medications per primary care recommendation, in addition patient will be prescribed [place] 7.5 mg/325 12 every 6 hours; senna; Eliquis 2.5 mg twice a day 2 weeks. Discharge instructions: 1. Wound care and infection precautions, keep incision dry and covered while showering, no lotions, creams, moisturizers. No soaking, tubs, pools, hottubs. Do not scrub over the incision. 2. Weight-bear as tolerated with walker / cane until follow-up. 3. Ice and elevate when necessary. Do not exceed 20 minutes per hour with ice pack. 4. Utilize compression sleeve until seen at first follow up appointment. 5. Visiting nursing care. 6. Home physical therapy including home CPM. 7. Pain meds and anticoagulants per prescription. 8. Pain medication has potential to cause constipation. Increase oral fluid and fiber intake. Contact primary care provider if you have not had a bowel movement within 48 hours after discharge 9. No anti-inflammatory medication until discussed at first post operative visit, this including Motrin, Aleve, Mobic, Diclofenac. 10. Follow up in office at 2 weeks postop with Jesus Zamora PA-C / Wilian Mckeon PA-C 11. Follow up with your primary care doctor 7-10 days after discharge. 12. Contact [facility] with any questions, . Assessment: Right knee osteoarthritis Procedures: Right total knee arthroplasty Patient Condition at Discharge: Good Plan - Discharge Summary Discharge Rx Participant: No New Discharge Prescriptions: No Action hydroCHLOROthiazide [Hydrodiuril] 50 mg PO DAILY Naproxen 500 mg PO BID PRN PRN Reason: Pain Metoprolol Tartrate [Lopressor] 50 mg PO BID glipiZIDE [Glucotrol] 20 mg PO 1700 Loratadine 10 mg PO DAILY PRN PRN Reason: Allergy Symptoms Albuterol Sulfate [Albuterol Sulfate Hfa] 1 puff PO RT-TID PRN PRN Reason: Shortness Of Breath metFORMIN HCL [Glucophage] 1,000 mg PO 1700 Pantoprazole Sodium 40 mg PO BID Gabapentin [Neurontin] 200 mg PO TID HYDROcodone/APAP 7.5-325MG [[place] 7.5-325] 1 tab PO Q6H Empagliflozin [Jardiance] 10 mg PO DAILY Alogliptin Benzoate [Alogliptin] 25 mg PO DAILY lisinopriL [Zestril] 5 mg PO 2100 calcitrioL 0.25 mcg PO DAILY Discharge Medication List hydroCHLOROthiazide [Hydrodiuril] 50 mg PO DAILY 11/08/17 [History] Albuterol Sulfate [Albuterol Sulfate Hfa] 1 puff PO RT-TID PRN 03/27/20 [History] Loratadine 10 mg PO DAILY PRN 03/27/20 [History] Metoprolol Tartrate [Lopressor] 50 mg PO BID 03/27/20 [History] Naproxen 500 mg PO BID PRN 03/27/20 [History] glipiZIDE [Glucotrol] 20 mg PO 1700 03/27/20 [History] metFORMIN HCL [Glucophage] 1,000 mg PO 1700 03/27/20 [History] Pantoprazole Sodium 40 mg PO BID 06/25/20 [History] Alogliptin Benzoate [Alogliptin] 25 mg PO DAILY 04/06/23 [History] Empagliflozin [Jardiance] 10 mg PO DAILY 04/06/23 [History] Gabapentin [Neurontin] 200 mg PO TID 04/06/23 [History] HYDROcodone/APAP 7.5-325MG [[place] 7.5-325] 1 tab PO Q6H 04/06/23 [History] calcitrioL 0.25 mcg PO DAILY 04/06/23 [History] lisinopriL [Zestril] 5 mg PO 2100 04/06/23 [History] Follow up Appointment(s)/Referral(s): Wilian Mckeon, PAC [PHYSICIAN TELETRAY OPERATOR] - 2 Weeks Patient Instructions/Handouts: Knee Replacement (DC), Knee Replacement (GEN) Activity/Diet/Wound Care/Special Instructions: Orthopedic Discharge Instructions: 1. Wound care and infection precautions, keep incision dry and covered while showering, no lotions, creams, moisturizers. No soaking, pools, hot tubs. Do not scrub over incision. 2. Weight-bear as tolerated with walker / cane until follow-up. 3. Ice and elevate when necessary. Do not exceed 20 minutes per hour with ice pack. 4. Utilize compression sleeve until seen at first follow up appointment. 5. Pain meds and anticoagulants per prescription. 6. Pain medication has potential to cause constipation. Increase oral fluid and fiber intake. Contact primary care provider if you have not had a bowel movement within 48 hours after discharge. 7. No anti-inflammatory medication until discussed at first post operative visit, this including Motrin, Aleve, Mobic, Diclofenac. 8. Follow up in office at 2 weeks postop with Jesus Zamora PA-C / Wilian Mckeon PA-C 9. Follow up with your primary care doctor 7-10 days after discharge. 10. Contact [facility] with any questions, . Keep incision clean, dry, intact. While showering, cover fusion tape with Saran wrap. Keep fusion tape on until follow-up appointment in office at 2 weeks Discharge Disposition: HOME WITH HOME HEALTH SERVICES
--- NOTE | 2023-04-12 11:40 | P.PN ---
Subjective Progress Note Date: 04/12/23 Principal diagnosis: Right knee osteoarthritis Patient was seen at bedside this morning sitting up in chair with dressing present over right knee. Patient says he just finished working with physical therapy and was able to walk down the arreaga and up-and-down steps. Patient says he is looking forward to going home later today. Patient says his son will be able to stay with him at home. Patient says he does need a walker for home. Patient says he has been passing gas since surgery but has not had a bowel movement yet. Patient says he has been urinating every hour or so since surgery. Patient says the pain is mostly located in the right knee and denies radiation of pain. Patient denies chest pain, fever, shortness breath, nausea, vomiting, change in vision, loss of bowel/bladder control. Objective - Vital Signs Vital signs: Vital Signs Temp 98.3 F 04/12/23 07:09 Pulse 101 H 04/12/23 07:09 Resp 19 04/12/23 07:09 BP 166/97 04/12/23 09:05 Pulse Ox 97 04/12/23 07:09 FiO2 Intake & Output 04/11/23 04/12/23 04/12/23 18:59 06:59 18:59 Intake Total 1346 1000 Output Total 650 Balance 696 1000 Weight 110 kg Intake: IV 1051 Oral 1000 Blood Product 295 Platelet Pheresis Pas 295 Psoralen Unit [id number] Output: Urine 600 Estimated Blood Loss 50 Other: # Voids 5 1 - Exam Right knee: Incision is clean, dry, and intact. The exofin fusion tape is in good condition. There is minimal soft tissue swelling and ecchymosis surrounding the medial and lateral aspects of the incision. Calf is soft, no tenderness with palpation. Plantar flexion, dorsiflexion, EHL, FHL are intact. Sensory exam to light touch throughout the extremity is intact, dorsal pedis pulses 2+. - Labs CBC & Chem 7: 04/12/23 07:39 Labs: Abnormal Lab Results - Last 24 Hours (Table) 04/11/23 04/11/23 04/11/23 Range/Units 11:22 13:29 17:23 Creatinine (0.66-1.25) mg/dL Glucose (74-99) mg/dL POC Glucose (mg/dL) 201 H 183 H 245 H (70-110) mg/dL 04/11/23 04/12/23 04/12/23 Range/Units 20:51 06:04 07:39 Creatinine 0.65 L (0.66-1.25) mg/dL Glucose 185 H (74-99) mg/dL POC Glucose (mg/dL) 265 H 198 H (70-110) mg/dL Assessment and Plan Assessment: 1. Right knee osteoarthritis - Postop day 1 status post right total knee arthroplasty Plan: 1. Right knee osteoarthritis - right total knee arthroplasty performed yesterday, 04/11/2023. Patient stable at bedside this morning. Patient did do well with therapy. Prescription for walker was signed. Discharge home today with health services. 2. Appreciate medical management 3. Pain management - Curtis; gabapentin 4. DVT prophylaxis - Xarelto in hospital. Going home with eliquis 2.5 mg twice a day 2 weeks 5. GI prophylaxis - senna 6. PT/OT - weightbearing as tolerated with walker 7. Encourage incentive spirometer use 8. Discharge planning - home today with health services Time with Patient: Less than 30
[2023-04-12 11:50] LABS: Basophils # (A) 0.03 X 10*3/uL (0.00-0.10); Basophils % (A) 0.4 %; Eosinophils # (A) 0.05 X 10*3/uL (0.04-0.35); Eosinophils % (A) 0.6 %; HCT 41.4 % (39.6-50.0); HGB 14.5 g/dL (13.0-17.0); Lymphocytes # (A) 1.45 X 10*3/uL (0.90-5.00); Lymphocytes % (A) 18.4 %; MCH 33.8 pg (27.0-32.0); MCV 96.5 FL (80.0-97.0); Mean Platelet Volume 13.6 FL (9.5-12.2); Monocytes # (A) 0.91 X 10*3/uL (0.20-1.00); Monocytes % (A) 11.6 %; NRBC Per 100 WBC 0 X 10*3/uL (0.00-0.01); Neutrophils # (A) 5.38 X 10*3/uL (1.80-7.70); Neutrophils % (A) 68.5 %; Platelet Count 85 X 10*3/uL (140-440); RBC 4.29 X 10*6/uL (4.40-5.60); RBC Morphology Normal (Normal); RDW 13.2 % (11.5-14.5); WBC 7.86 X 10*3/uL (4.50-10.00)
--- NOTE | 2023-04-12 14:02 | P.PN ---
Subjective Progress Note Date: 04/12/23 Hospital course: Patient is a very pleasant 57-year-old male with a past medical history of non- insulin dependent diabetes mellitus, hypertension, GERD, chronic th rombocytopenia, and osteoarthritis. He is currently admitted under orthopedic surgery team status post elective right total knee arthroplasty competed by on 04/11/23. We were consulted and following along with patient for medical management throughout his hospitalization. Physical exam: Pt seen and fully evaluated at bedside. He is post-operative day 1. Patient sitting up in chair at time of assessment and appears to be doing well. Patient reports moderate postoperative pain in right knee currently rating 6-7 out of 10 at this time. He denies having any other complaints including headache, lightheadedness, dizziness, chest pain, palpitations, shortness of breath, or experiencing any nausea or vomiting. Vital signs reviewed and stable. General: Nontoxic, no distress and appears stated age. Derm: Skin warm and dry, normal coloration for ethnicity. Head: Atraumatic, normocephalic and symmetric. Eyes: EOMs intact, no lid lag, and anicteric sclera Mouth: no lip lesions, mucus membranes moist Cardiovascular: regular rate and rhythm with normal S1S2, no murmur, positive posterior tibial pulses bilaterally, and cap refill < 2 seconds. Lungs: Respirations even, regular, and unlabored on room air. Lungs CTA bilaterally, no rhonchi, no rales, no wheezing, and no accessory muscle usage. Abdominal: soft, nontender to palpation, no guarding, no appreciable organomegaly Ext: ROM intact. No gross muscle atrophy, no edema, no contractures Neuro: Speech clear, face symmetrical and CN II-XII grossly intact with no noted focal neuro deficits Psych: Alert and oriented to person, place, time, and situation. Appropriate and pleasant affect. Assessment and Plan of Care: Thrombocytopenia -Patient with chronic thrombocytopenia preoperative platelet count was 69 and postoperative platelet count is stable at 85. No need for further intervention or testing at this time, patient to continue to follow-up outpatient with textile colorist formulator for long-term monitoring/management of thrombocytopenia. Diabetes mellitus with hyperglycemia -Patient currently on glycemic protocol with NovoLog sliding scale, at time of discharge recommend resuming alogliptin 25 mg daily, Jardiance 10 mg daily, glipizide 20 mg daily, and Glucophage 1000 mg daily. Hypertension -Continue daily medication regimen with-metoprolol 50 mg twice daily, hydrochlorothiazide 50 mg daily, and lisinopril 5 mg nightly. GERD -Continue Protonix 40 mg twice daily. Status post right total knee arthroplasty -Management per primary admitting orthopedic surgery team including DVT prophylaxis, pain management, wound/dressing changes, weightbearing and PT/OT. Data and imaging reviewed: Postoperative Labs completed and reviewed. CBC showing platelet count of 85. BMP unremarkable. Blood glucose 185. Magnesium normal findings at 2.0. Vital signs reviewed. Blood pressure 166/97, heart rate 101, temp 98.3 F, and SpO2 of 97% on room air. Patient currently reports 7 out of 10 postoperative pain, he is currently being medicated with [place] at this time. Patient cleared from medical perspective for discharge once pain is controlled and he is cleared by primary admitting orthopedic surgery team. Thank you for allowing us to participate in the care of this pleasant patient. Do not hesitate to contact us with questions. Someone can be reached from the [facility] hospitalist group all hours of the day at [phone] or via [facility] [facility]. Patient was seen independently by Nurse Pracitioner. This document was prepared using [employer] dictation software. Please allow for errors in supplemental manager, while rare they do occur. Heladio Coronado NP rendered care for this patient independently, reviewed the findings and plan as documented in the note above. I did not physically speak with or examine the patient on this date. Objective - Vital Signs Vital signs: Vital Signs Temp 98.3 F 04/12/23 07:09 Pulse 101 H 04/12/23 07:09 Resp 19 04/12/23 07:09 BP 178/113 04/12/23 07:09 Pulse Ox 97 04/12/23 07:09 FiO2 Intake & Output 04/11/23 04/12/23 04/12/23 18:59 06:59 18:59 Intake Total 1346 1000 Output Total 650 Balance 696 1000 Weight 110 kg Intake: IV 1051 Oral 1000 Blood Product 295 Platelet Pheresis Pas 295 Psoralen Unit [id number] Output: Urine 600 Estimated Blood Loss 50 Other: # Voids 5 2 - Labs CBC & Chem 7: 04/12/23 07:39 04/12/23 07:39 Labs: Abnormal Lab Results - Last 24 Hours (Table) 04/11/23 04/11/23 04/11/23 Range/Units 11:22 13:29 17:23 POC Glucose (mg/dL) 201 H 183 H 245 H (70-110) mg/dL 04/11/23 04/12/23 Range/Units 20:51 06:04 POC Glucose (mg/dL) 265 H 198 H (70-110) mg/dL
[2023-04-12] MEDS ORDERED: lisinopriL 5 MG TAB PO SCH (21:00)
== END 2023-04-12 14:14 | disposition home health service (06) ==
LOC: OR 10:00 → 4SSUR 16:49 → OR 04-12 14:14
PROVIDERS: ATTEND Orthopaedic Surgery
DX: M17.11 Unilateral primary osteoarthritis, right knee (principal); G89.18 Other acute postprocedural pain; D69.6 Thrombocytopenia, unspecified; E11.65 Type 2 diabetes mellitus with hyperglycemia; I10 Essential (primary) hypertension; K21.9 Gastro-esophageal reflux disease without esophagitis; Z79.84 Long term (current) use of oral hypoglycemic drugs; Z79.899 Other long term (current) drug therapy; Z87.891 Personal history of nicotine dependence; Z88.8 Allergy status to other drugs, medicaments and biological substances; Z88.6 Allergy status to analgesic agent; Z79.01 Long term (current) use of anticoagulants
CPT/HCPCS: 97161; 64999; 64448; 86900; 86901; 80048; 83735; 85025; 86850; 73560; 27447; C1713 ×2; C1776; C1751; P9073; J2250; J1100; J0690 ×3; J2405; J3010; J1170 ×3; J2795; 36430

== ENCOUNTER 2024-01-26 09:45 | Day surgery (SDC) | payer OTHER ==
[2024-01-25 12:02] VITALS: BMI 42.7
[2024-01-26 10:26] VITALS: TEMP 97.1
[2024-01-26] MEDS: IV FLUID CONTINUATION 1,000 ML IV ONE (10:34)
[2024-01-26] MEDS: LACTATED RINGERS 1,000 ML IV SCH (10:34)
[2024-01-26 10:36] LABS: Glucose,Whole Blood 155 mg/dL (70-110)
[2024-01-26] MEDS ORDERED: PROPOFOL 10 MG/ML 20 ML VIAL IV ONE (10:51)
[2024-01-26] MEDS ORDERED: LIDOCAINE 1% INJ 10MG/ML (20 ML MDV) ONE (10:51)
--- NOTE | 2024-01-26 11:06 | P.PCN ---
Date of Procedure: 01/26/24 Procedure(s) Performed: BRIEF HISTORY: Patient is a 58-year-old, pleasant, white male Endoscopy as a part evaluation amongst history of GERD and Joseph's esophagus. He is presently on Protonix 40 mg twice daily.. PROCEDURE PERFORMED: Esophagogastroduodenoscopy biopsy. PREOPERATIVE DIAGNOSIS: Longstanding history of GERD/Joseph's esophagus. IV sedation per anesthesia. PROCEDURE: After informed consent was obtained, the patient was brought into the endoscopy unit. IV sedation was administered by Anesthesia under continuous monitoring. Initially the Olympus GIF-140 video endoscope was inserted into the mouth. Esophagus intubated without any difficulty. It was gradually advanced into the stomach and duodenum and carefully examined. The bulb and the second part of the duodenum appeared normal. The scope at this time was withdrawn to the stomach, adequately insufflated with air, and upon careful examination, mucosa of the antrum, and mild gastritis. Mucosa of the body, cardia and the fundus appeared normal. The scope was then withdrawn into the esophagus. The GE junction was located at 45 cm from the incisors. Elevated linear tongues of Joseph's appearing mucosa extending proximal to the GE junction between 40 to 43 cm from the incisors and multiple biopsies were done from this area. The rest of the esophagus appeared normal. There were no erosions or ulcerations seen and the patient tolerated the procedure well. IMPRESSION: 1. Long tongue of Joseph's appearing mucosa with a few few islands of salmon- colored mucosa extending from 40 to 43 cm from the incisors status post multiple biopsies. 2. Mild gastritis. RECOMMENDATIONS: The findings of this examination were discussed with the patient as well as his family. He was advised to follow-up with the biopsy results. If the biopsy confirms the presence of Joseph's esophagus, he can have repeat upper endoscopy in 3 years. Endometrium he will continue with Protonix 40 mg twice daily and follow antireflux measures.
[2024-01-26 11:59] VITALS: BP 146/90; PULSE 68; RESP 20
== END 2024-01-26 11:58 | disposition home or self-care (01) ==
LOC: ORWHC2ENDO 09:45
PROVIDERS: ATTEND Internal Medicine Gastroenterology
DX: K29.70 Gastritis, unspecified, without bleeding (principal); K22.70 Barrett's esophagus without dysplasia; K21.9 Gastro-esophageal reflux disease without esophagitis; Z79.899 Other long term (current) drug therapy
CPT/HCPCS: 88305; 43239; J2003; J2704